=== PATIENT | male | born 1985 | race Caucasian/White ===

== ENCOUNTER 2019-03-25 12:02 | Emergency (ER) | payer OTHER ==
[2019-03-25] MEDS: predniSONE 20 MG TAB PO (14:53)
[2019-03-25] MEDS: IPRATROPIUM (NEB) 0.5 MG/2.5 ML AMP NEB (14:53)
[2019-03-25] MEDS: ALBUTEROL 0.083% (NEB) 2.5 MG/3 ML AMP NEB (14:53)
== END 2019-03-25 15:39 | disposition home or self-care (01) ==
LOC: FTE 12:02
DX: J45.901 Unspecified asthma with (acute) exacerbation (principal); Z87.891 Personal history of nicotine dependence
CPT/HCPCS: 94664; 99283-25